=== PATIENT | male | born 1965 | race Caucasian/White ===

== ENCOUNTER → 2017-10-20 11:35 | Outpatient (RCR) | payer MEDICARE, SELFPAY ==
--- NOTE | 2013-08-08 11:46 | TODAY_ITS ---
To: PCP [facility] Reason for today's visit: REFERRED BY SUSIE Plan: PT STATES SUSIE TOLD HIM TO CALL [facility] AND THEN TO CALL [facility]. HE LIVES [address] AND NEEDS HELP WITH LIGHT HOUSEWORK AND TAKING THE TRASH OUT AND TRANSPORTATION. I SUGGESTED [facility]JANA IN ACTION FOR ALL. HE SAID HE WAS MAINLY CONCERNED ABOUT TRASH ONCE A WEEK. I ALSO STATED HE COULD CALL [facility] AND THEY WOULD PICK HIM UP IN FRONT OF HIS BUILDING ON THEIR ROUTE. WE ALSO TALKED A BIT ABOUT DISABILITY AND WHEN TO APPLY, BUT HE IS HOPING TO GET BACK TO WORK. Action Plan: Chronic Condition: Referred to:
== END ==
LOC: COCO 08-08 11:30
PROVIDERS: PCP Family Medicine; Visit Provider Family Medicine
DX: 799.89 (principal)